=== PATIENT | male | born 1995 | race Caucasian/White ===

== ENCOUNTER → 2022-02-14 | Emergency (ER) | payer SELFPAY ==
[~2022-02-14] VITALS: Ht 182.9 cm; Wt 86.2 kg
[~2022-02-14] MED LIST: DIPH25CA83 PO; EPINEPHRINE (1:1000) 1 MG/ML AMPUL ONE; EPINEPHRINE (1:1000) MDV 30 MG/30ML VIAL SUBCUT ONE; FAMO-131 PO; FAMOTIDINE (20 MG) 20 MG TABLET ONE; FAMOTIDINE (20 MG) 20 MG TABLET PO ONE; ONDANSETRON 4 MG TAB.RAPDIS ONE; ONDANSETRON 4 MG TAB.RAPDIS SL ONE; PRED50TA PO; diphenhydrAMINE HCL 50 MG/ML VIAL IM ONE; diphenhydrAMINE HCL 50 MG/ML VIAL ONE; methylPREDNISolone SOD SUCC 125 MG/2ML VIAL IM ONE; methylPREDNISolone SOD SUCC 125 MG/2ML VIAL ONE
--- NOTE | 2022-02-14 20:39 | NUR ---
BIBS A/O X4 C/O ALLERGIC REACTION ATE COCONUT ICECREAM C/O DIFFICULTY BREATHING +VOMITTING. HAD BENADRYL NUTRITION INTERN
[2022-02-14 21:52] VITALS: BP 121/64
--- NOTE | 2022-02-14 21:52 | NUR ---
PT DISCHARGED IN STABLE CONDITION.V/S STABLE.
== END | disposition home or self-care (01) ==
LOC: ER 20:10
DX: T78.1XXA Other adverse food reactions, not elsewhere classified, initial encounter (principal); R11.10 Vomiting, unspecified; R07.0 Pain in throat; Z60.2 Problems related to living alone; Z79.899 Other long term (current) drug therapy; Z91.013 Allergy to seafood; Z91.018 Allergy to other foods; X58.XXXA Exposure to other specified factors, initial encounter
CPT/HCPCS: 99285; 96372 ×2; J1200; J0171 ×2; J2930; Q0162